=== PATIENT | male | born 1945 | race Caucasian/White ===

== ENCOUNTER 2017-07-06 15:22 | Observation (INO) | payer OTHER ==
--- NOTE | 2017-07-06 15:22 | EDPHY ---
H & P Time Seen by Provider: 07/06/17 15:22 HPI/ROS: CHIEF COMPLAINT: Syncope HISTORY OF PRESENT ILLNESS: Patient was brought in by EMS. He was at home and walking on his way to the bathroom when he felt the hallway"started to enlarge "and fell down having syncope, was out for between 30 sec in a minute per his family. He slid down the wall and scraped his left elbow but did not sustain any other injuries. New medication for dementia 2 days ago. No seizure activity reported. Does not complain of headache or neck pain now. No chest pain or shortness of breath. He did not have a 2nd episode of syncope and does not have lightheadedness or dizziness now. REVIEW OF SYSTEMS: Eye: no change in vision ENT: no sore throat Cardiac: No chest pain Pulmonary: no cough or SOB Abdomen: no vomiting, diarrhea, abdominal pain Musculoskeletal: No neck or back pain, per EMS did have some pain in his left lower ribs but none now. Skin: Left elbow abrasion, tetanus up-to-date Neuro: no headache Constitutional: no fever, feels"shaky"now : no urinary symptoms A comprehensive 10 point review of systems is otherwise negative aside from elements mentioned in the history of present illness. PAST MEDICAL HISTORY: Includes dementia, hip replacement Social history: Daughter and here. Primary care is Dr. Odell at [place], 1 beer a day. General Appearance: Alert and conversant, cooperative. Despite diagnosis of dementia the patient actually does give a pretty good of the events up to his syncopal episode today Eyes: No scleral icterus. Pupils equal and reactive extraocular motion intact. ENT, Mouth: Normal mucous membranes. No tongue laceration or abrasion. Respiratory: Normal respiratory effort, breath sounds equal, lungs are clear to auscultation. Cardiovascular: Regular rate and rhythm. Gastrointestinal: Abdomen is soft and non tender. Does not have tenderness over the spleen. Neurological: Alert, face symmetric, normal motor and sensory in extremities. Left leg is a little bit shaky. Speech is fluent knees able to recall the events as documented in the HPI except for his syncope. Skin: Left elbow abrasion. Musculoskeletal: No extremity or cervical thoracic or lumbar spine tenderness to palpation Psychiatric: Not agitated. Emergency Department course/MDM: Planned EKG, CBC chemistry and troponin. 1636: Discussed with Deana at [facility], requests admission at [facility] not transfer to [facility]. Admission for evaluation of syncope and elderly patient. Constitutional: Initial Vital Signs Temperature (C) 36.4 C 07/06/17 15:37 Heart Rate 78 07/06/17 15:37 Respiratory Rate 16 07/06/17 15:37 Blood Pressure 175/90 H 07/06/17 15:37 O2 Sat (%) 96 07/06/17 15:37 O2 Delivery Mode Room Air Allergies/Adverse Reactions: Penicillins Allergy (Unknown, Verified 07/06/17 17:34) Home Medications: Medication Instructions Recorded Cholecalciferol Vit D3 [Vitamin D3 1,000 units PO DAILY 07/06/17 (*)] Cyanocobalamin [Vitamin B12 (*)] 1,000 mcg PO DAILY 07/06/17 Donepezil HCl [Aricept 5 MG (*)] 10 mg PO DAILY 07/06/17 Memantine HCl [Namenda 5 mg (*)] 5 mg PO DAILY 07/06/17 Medical Decision Making - Diagnostics EKG Interpretation: 12-lead EKG interpreted by me; official reading is in trace master. My interpretation is sinus rhythm rate 73, normal intervals. Imaging Results: Imaging Impressions Chest X-Ray 07/06/17 15:28 Impression: 1. Mild central peribronchial thickening and hyperexpansion which could be related to bronchitis/airways disease. 2. Additional findings, as above. Negative chest x-ray personally interpreted. Differential Diagnosis: Differential diagnosis considered for syncope including but not limited to vasovagal syncope, arrhythmia, dehydration, and blood loss. Consult/Admit Bed Type: [place] [address] - Data Points Laboratory Results: Laboratory Results 07/06/17 15:50 07/06/17 15:50 07/06/17 07/06/17 07/06/17 15:50 15:50 15:50 WBC 6.41 10^3/uL 10^3/uL (3.80-9.50) RBC 4.25 10^6/uL L 10^6/uL (4.40-6.38) Hgb 14.4 g/dL g/dL (13.7-17.5) Hct 41.6 % % (40.0-51.0) MCV 97.9 fL fL (81.5-99.8) MCH 33.9 pg pg (27.9-34.1) MCHC 34.6 g/dL g/dL (32.4-36.7) RDW 11.8 % % (11.5-15.2) Plt Count 165 10^3/uL 10^3/uL (150-400) MPV 9.7 fL fL (8.7-11.7) Neut % (Auto) 74.3 % H % (39.3-74.2) Lymph % (Auto) 15.9 % % (15.0-45.0) [place] % (Auto) 7.0 % % (4.5-13.0) Eos % (Auto) 2.0 % % (0.6-7.6) Baso % (Auto) 0.5 % % (0.3-1.7) Nucleat RBC Rel Count 0.0 % % (0.0-0.2) Absolute Neuts (auto) 4.76 10^3/uL 10^3/uL (1.70-6.50) Absolute Lymphs (auto) 1.02 10^3/uL 10^3/uL (1.00-3.00) Absolute Monos (auto) 0.45 10^3/uL 10^3/uL (0.30-0.80) Absolute Eos (auto) 0.13 10^3/uL 10^3/uL (0.03-0.40) Absolute Basos (auto) 0.03 10^3/uL 10^3/uL (0.02-0.10) Absolute Nucleated RBC 0.00 10^3/uL 10^3/uL (0-0.01) Immature Gran % 0.3 % % (0.0-1.1) Immature Gran # 0.02 10^3/uL 10^3/uL (0.00-0.10) Sodium 146 mEq/L H mEq/L (135-145) Potassium 4.0 mEq/L mEq/L (3.5-5.2) Chloride 108 mEq/L mEq/L (97-110) Carbon Dioxide 25 mEq/l mEq/l (22-31) Anion Gap 13 mEq/L mEq/L (8-16) BUN 15 mg/dL mg/dL (7-23) Creatinine 0.9 mg/dL mg/dL (0.7-1.3) Estimated GFR > 60 Glucose 112 mg/dL H mg/dL (70-100) Calcium 8.9 mg/dL mg/dL (8.5-10.4) Troponin I < 0.012 ng/mL ng/mL (0.000-0.034) TSH 5.350 uIU/mL H uIU/mL (0.465-4.680) Departure - Departure Disposition: [place] Inpatient Acute Clinical Impression: Syncope Qualifiers: Syncope type: unspecified Qualified Code(s): R55 - Syncope and collapse Condition: Good
--- NOTE | 2017-07-06 16:00 | CPEKG ---
Heart Rate: 73 RR Interval: 822 P-R Interval: 160 QRSD Interval: 90 QT Interval: 396 QTC Interval: 437 P [place]: 83 QRS [place]: 83 T Wave [place]: 74 EKG Severity - BORDERLINE ECG - EKG Impression: SINUS RHYTHM EKG Impression: LOW VOLTAGE WITH RIGHT AXIS DEVIATION Electronically Signed By: Damián Posey 06-Jul-2017 16:12:45
[2017-07-06 16:06] LABS: PLATELET COUNT 165 10^3/uL (150-400)
[2017-07-06] MEDS ORDERED: ACETAMINOPHEN 325 MG TAB PO PRN (17:31)
[2017-07-06] MEDS ORDERED: ONDANSETRON DISINTEGRATING 4 MG TAB PO PRN (17:31)
[2017-07-06] MEDS ORDERED: ONDANSETRON 4 MG/2 ML VIAL IVP PRN (17:31)
[2017-07-06] MEDS: D5W 1/2 NS 1,000 ML IV SCH (19:52)
--- NOTE | 2017-07-06 19:52 | PDGENHP ---
History and Physical - Chief Complaint Acute syncope - History of Present Illness Primary care provider: Dr. Rupal Johnson at [facility] Primary neurologist: Dr. Odell at [facility] HPI: 71-year-old male presenting with acute syncope characterized as completely losing consciousness in the setting of ambulating to the bathroom. Patient reports that he had otherwise been having a very normal day and was visiting with his family, and after lunch, the patient had been standing for approximately 30 min and then ambulated to the bathroom. He denies experiencing any significant urinary urgency, but while he was ambulating down the villarreal he began experiencing some sensory perception changes and he felt like he was going to pass out. When the patient got into the bathroom, he slowly lowered himself to the floor and was supported by resting his back against the door. His family responded to the scene, they helped him safely get into the supine position, and they deny any trauma. They report that he was completely unresponsive, initially with eyes closed, then with eyes open, but with no verbal or physical responsiveness. The duration of the symptoms was approximately 1 min, and then they were alleviated without any intervention. The patient did have some associated diaphoresis, and then he awoke, mumbling. The subsequent symptoms completely abated, and the patient was completely in his normal state of health when he arrived in the emergency department. The patient does have underlying dementia and he was initiated on 5 mg daily of Namenda yesterday. He has had no recent medication changes other than this, and the plan was to up titrate this in the outpatient setting every week. The patient has otherwise been eating and drinking normally and although he is not particularly physically active, his has not recently noted any series reduction in his ambulatory abilities or exercise tolerance. History Information - Allergies/Home Medication List Allergies/Adverse Reactions: Penicillins Allergy (Unknown, Verified 07/06/17 17:34) Home Medications: Cholecalciferol Vit D3 [Vitamin D3 (*)] 1,000 units PO DAILY 07/06/17 [Last Taken 07/06/17] Cyanocobalamin [Vitamin B12 (*)] 1,000 mcg PO DAILY 07/06/17 [Last Taken ] Donepezil HCl [Aricept 5 MG (*)] 10 mg PO DAILY 07/06/17 [Last Taken 07/06/17] Memantine HCl [Namenda 5 mg (*)] 5 mg PO DAILY 07/06/17 [Last Taken 07/06/17] I have personally reviewed and updated: family history, medical history, social history, surgical history - Past Medical History Additional medical history: Dementia for approximately 1 year, currently on Aricept 10 mg daily and recently initiated on Namenda 5 mg daily. Elevated blood pressure at [facility] appointment on 06/23/2017, does not currently have a diagnosis of hypertension. 1 syncopal episode approximately 4 years ago while the patient was in the [facility], attributed to dehydration at that time. - Surgical History Additional surgical history: Left hip surgery in [place] - Family History Additional family history: Father with myocardial infarction in his 50s and was a heavy smoker, no family history of venous thromboembolism - Social History Smoking Status: Never smoked Alcohol Use: Other (1 beer nightly) Drug Use: None Additional social history: Patient is mostly sedentary Review of Systems Review of Systems: ROS: 10pt was reviewed & negative except for what was stated in HPI & below Constitutional: Reports: other (Loss of consciousness, diaphoresis) Physical Exam Physical Exam: Temp Pulse Resp BP Pulse Ox 36.9 C 80 14 171/89 H 95 07/06/17 18:49 07/06/17 18:49 07/06/17 18:49 07/06/17 18:49 07/06/17 18:49 Constitutional: no apparent distress, appears nourished, not in pain, other ( Thin appearing man) Eyes: PERRL, anicteric sclera, EOMI Ears, Nose, Mouth, Throat: moist mucous membranes, hearing normal, ears appear normal, no oral mucosal ulcers Cardiovascular: regular rate and rhythym, no murmur, rub, or gallop, No edema Respiratory: no respiratory distress, no rales or rhonchi, clear to auscultation Gastrointestinal: normoactive bowel sounds, soft, non-tender abdomen, no palpable masses Skin: No abrasion, No rash Neurologic: AAOx3, sensation intact bilaterally, CN II-XII Intact, No weakness Psychiatric: not anxious, flat affect, other (Some intermittent confusion and poor short-term memory), No agitated Lab Data & Imaging Review 07/06/17 15:50 07/06/17 15:50 WBC 6.41 10^3/uL (3.80-9.50) 07/06/17 15:50 RBC 4.25 10^6/uL (4.40-6.38) L 07/06/17 15:50 Hgb 14.4 g/dL (13.7-17.5) 07/06/17 15:50 Hct 41.6 % (40.0-51.0) 07/06/17 15:50 MCV 97.9 fL (81.5-99.8) 07/06/17 15:50 MCH 33.9 pg (27.9-34.1) 07/06/17 15:50 MCHC 34.6 g/dL (32.4-36.7) 07/06/17 15:50 RDW 11.8 % (11.5-15.2) 07/06/17 15:50 Plt Count 165 10^3/uL (150-400) 07/06/17 15:50 MPV 9.7 fL (8.7-11.7) 07/06/17 15:50 Neut % (Auto) 74.3 % (39.3-74.2) H 07/06/17 15:50 Lymph % (Auto) 15.9 % (15.0-45.0) 07/06/17 15:50 [place] % (Auto) 7.0 % (4.5-13.0) 07/06/17 15:50 Eos % (Auto) 2.0 % (0.6-7.6) 07/06/17 15:50 Baso % (Auto) 0.5 % (0.3-1.7) 07/06/17 15:50 Nucleat RBC Rel Count 0.0 % (0.0-0.2) 07/06/17 15:50 Absolute Neuts (auto) 4.76 10^3/uL (1.70-6.50) 07/06/17 15:50 Absolute Lymphs (auto) 1.02 10^3/uL (1.00-3.00) 07/06/17 15:50 Absolute Monos (auto) 0.45 10^3/uL (0.30-0.80) 07/06/17 15:50 Absolute Eos (auto) 0.13 10^3/uL (0.03-0.40) 07/06/17 15:50 Absolute Basos (auto) 0.03 10^3/uL (0.02-0.10) 07/06/17 15:50 Absolute Nucleated RBC 0.00 10^3/uL (0-0.01) 07/06/17 15:50 Immature Gran % 0.3 % (0.0-1.1) 07/06/17 15:50 Immature Gran # 0.02 10^3/uL (0.00-0.10) 07/06/17 15:50 Sodium 146 mEq/L (135-145) H 07/06/17 15:50 Potassium 4.0 mEq/L (3.5-5.2) 07/06/17 15:50 Chloride 108 mEq/L (97-110) 07/06/17 15:50 Carbon Dioxide 25 mEq/l (22-31) 07/06/17 15:50 Anion Gap 13 mEq/L (8-16) 07/06/17 15:50 BUN 15 mg/dL (7-23) 07/06/17 15:50 Creatinine 0.9 mg/dL (0.7-1.3) 07/06/17 15:50 Estimated GFR > 60 07/06/17 15:50 Glucose 112 mg/dL (70-100) H 07/06/17 15:50 Calcium 8.9 mg/dL (8.5-10.4) 07/06/17 15:50 Troponin I < 0.012 ng/mL (0.000-0.034) 07/06/17 15:50 TSH 5.350 uIU/mL (0.465-4.680) H 07/06/17 15:50 Visualized and Interpreted Chest x-ray results: Yes Chest X-Ray results: other (Mild peribronchial thickening but no focal airspace disease) Visualized and Interpreted EKG results: Yes EKG Interpretation: Positive for: other (Normal sinus rhythm) Assessment & Plan Assessment: 71-year-old male presenting with acute syncope in the setting of mild dementia Plan: 1. Syncope. Acute, new problem this provider, further workup indicated. Potential etiologies include vasovagal episode post-prandially or pre-micturate verses medication side effect of combining Aricept and Namenda with dizziness as a listed side effect -rule out structural valvular abnormality with echo -rule out anterior posterior circulation defect with carotid ultrasound -D-dimer to rule out venous thromboembolism given his sedentary nature -monitor on telemetry overnight and recommend outpatient 30 day event monitor if unremarkable -will review the above data with the family tomorrow and then discuss continuing the Namenda at the current dosing, avoiding up titration, and recommended close outpatient follow up with his neurologist to ensure that he does not experience any subsequent symptoms 2. Mild dementia. Patient currently well cared for and well compensated, currently on dual medication, as mentioned above, would recommend avoiding up titration the Namenda until he sees his outpatient neurologist in followup 3. Elevated blood pressure. No formal history of hypertension, was recently elevated on outpatient encounter, if continues to be substantially hypertensive , will advise the patient to either initiating medication and then follow up with his primary care provider, or follow up with his primary care provider in the short term for reassessment Diet. Regular Prophylaxis. Moderate risk patient, Lovenox 40 Code. Full, MD BASURTO Disposition. Anticipated discharge is 07/07, pending further workup of conditions outlined above. I have discussed patient's presentation with Dr. Damián Posey in the emergency department, we both agree the patient warrants the aforementioned evaluation in the PCU.
[2017-07-07 04:17] VITALS: O2SAT 92
[2017-07-07] MEDS: D5W 1/2 NS 1,000 ML IV SCH (05:43)
[2017-07-07] MEDS ORDERED: CYANO/VITAMIN B12 1000 MCG TAB PO SCH (09:00)
[2017-07-07] MEDS ORDERED: MEMANTINE HCL 5 MG TAB PO SCH (09:00)
[2017-07-07] MEDS ORDERED: CHOLECALCIFEROL VIT D3 1,000 UNITS TAB PO SCH (09:00)
[2017-07-07] MEDS ORDERED: DONEPEZIL HCL 5 MG TAB PO SCH (09:00)
[2017-07-07] MEDS ORDERED: ENOXAPARIN 40 MG/0.4 ML SYR SC SCH (09:00)
--- NOTE | 2017-07-07 10:10 | ASMTCMCOM ---
CM Note CM Note Notes: 07/07/2017 Case Management Note Met w/pt and Demetrice [phone] (cell) and [phone] (home). ARIAS signed. There are no case management d/c needs identified. Pt is independent in ADL's and ambulates without difficulty. His transports him to the grocery and appointments because pt no longer drives. Pt daughter Ramona lives in [place] and provides support. Case Management d/c poc: home independent with follow up as directed. Case Management available if needs change. Date Signed: 07/07/2017 10:10 AM Electronically Signed By:Erin Lerma RN
[2017-07-07 11:23] VITALS: BP 174/80; PULSE 76; RESP 15; TEMP 98.3
--- NOTE | 2017-07-07 12:47 | ECHO ---
[email or web address] [address] Main: [phone] Fax: Transthoracic Echocardiogram Name: MICHAEL RIOS MR#: [id number] Study Date: 07/07/2017 Study Time: 09:27 AM Date of : 1945 Age: 71 year(s) Height: 182.9 cm (72 in.) Weight: 54.43 kg (120 lb.) BSA: 1.71 m2 Gender: Male Examination: Echo Indication: Cardiac: syncope Image Quality: Technically Difficult Contrast: Requested by: Tyrone Mandujano BP: 155 mmHg/83 mmHg Heart Rate: Rhythm: Normal sinus rhythm Indication: Cardiac: syncope Procedure Staff Technical Designer: Elke Cartwright [facility] Reading Physician: Roberto Walters MD Requesting Provider: Conclusions: Normal size left ventricle. Normal global systolic LV function. EF is 60 %. Grade 1 diastolic dysfunction (abnormal relaxation). Normal RV function. The left atrium is normal in size. The right atrium is normal in size. Right ventricular systolic pressure measures 30mmHg. The IVC is normal sized. No pericardial effusion. Measurements: Chambers Valvular Assessment AV/MV Valvular Assessment TV/PV Normal Normal Normal Name Value Range Name Value Range Name Value Range Ao [place] (MM): 2.7 cm (2.2 cm-3.7 AV Vmax: 1.15 m/s (1 m/s-1.7 TR Vmax: 2.51 mm/s ( - ) cm) m/s) TR PGmax: 25 mmHg ( - ) IVSd (2D): 0.7 cm (0.6 cm-1.1 AV maxP mmHg ( - ) syst. PAP: 30 mmHg ( - ) cm) LVOT Vmax: 0.84 m/s (0.7 m/s-1.1 PV Vmax: 1.15 m/s (0.6 m/s-0.9 LVDd (2D): 4.5 cm (4.2 cm-5.9 m/s) m/s) cm) SNEHAL (Vmax): 2.1 cm2 ( - ) PV PGmax: 5 mmHg ( - ) LVDs (2D): 3.1 cm (2.1 cm-4 MV E Vmax: 0.47 m/s ( - ) cm) MV A Vmax: 0.76 m/s ( - ) LVPWd (2D): 0.9 cm (0.6 cm-1 MV E/A: 0.62 ( - ) cm) LVOTd 1.9 cm 1.9 cm mm LVEF (2D): 60 (>=54 %) Continued Measurements: Chambers Valvular Assessment AV/MV Valvular Assessment TV/PV Patient: MICHAEL RISO Study Date: 07/07/2017 Page 1 of 2 09:27 AM Name Value Name Value Name Value LADs Lon.5 cm MV DecTime: 243 m/s CVP (est.): 5 mmHg LA Area: 10.3 cm2 MV E/E' Septal: 6.20 RA Area: 10.0 cm2 Additional Vessels Name Value Ao Ascendin.6 cm Findings: Left Ventricle: Normal size left ventricle. No LV hypertrophy. Normal global systolic LV function. EF is 60 %. No regional wall motion abnormality. Grade 1 diastolic dysfunction (abnormal relaxation). Right Ventricle: Normal size right ventricle. Normal RV function. Left Atrium: The left atrium is normal in size. Right Atrium: The right atrium is normal in size. Mitral Valve: The mitral valve is normal in appearance and function. Trivial to mild mitral regurgitation. No mitral stenosis is present. Aortic Valve: The aortic valve is normal in appearance and function. Trivial to mild aortic valve regurgitation. No aortic valve stenosis is present. Trivial aortic valve regurgitation. Tricuspid Valve: The tricuspid valve is normal in appearance and function. Mild tricuspid regurgitation is present. The pulmonary artery pressure is normal. Right ventricular systolic pressure measures 30mmHg. Pulmonic Valve: The pulmonic valve is normal in appearance and function. There is no pulmonic regurgitation seen. Aorta: The aorta is normal. Normal size aortic root measuring 2.7 cm. Normal size ascending aorta measuring 2.6 cm. IVC: The IVC is normal sized. There is greater sandra 50% respiratory excursion. Pericardium: No pericardial effusion. (No Signature Object) Patient: MICHAEL RIOS Study Date: 07/07/2017 Page 2 of 2 09:27 AM [id number]
--- NOTE | 2017-07-07 15:31 | ASDISCHSUM ---
Discharge Information Plan Status:Home with No Needs Medically Cleared to Leave: Discharge Date:07/07/2017 02:07 PM CM D/C Disposition:Home, Routine, Self-Care ADT D/C Disposition:Home, Routine, Self-Care Projected Discharge Date:07/07/2017 02:07 PM Transportation at D/C:Family Discharge Delay Reason: Follow-Up Date:07/07/2017 02:07 PM Discharge Slot: Final Diagnosis: Placement Information Patient Contact Information Contact Name:KIRA Relationship: Address:[address] City:[place] Alternate Phone: [facility]/Zip Code:[place] [address] Email: Financial Information Financial Class:Medicare Advantage Plans Primary Plan Desc:[employer] ADVANTAGE OUTPAT Primary Plan Number:[id number] Secondary Plan Desc: Secondary Plan Number: Assessment Information LACE LACE Length of stay for Answers: Less than 1 day current admission Acuity / Level of Answers: Yes Care: Did the patient have an inpatient admission? Comorbidities - select Answers: Dementia all that apply Other Notes: hip replacement, # of Emergency department Answers: 1-2 visits in the last 6 months Score: 8 Date Signed: 07/07/2017 03:29 PM Electronically Signed By:Erin Lerma RN [facility] CM Progress Note CM Note CM Note Notes: 07/07/2017 Case Management Note Met w/pt and Demetrice [phone] (cell) and [phone] (home). JUANA signed. There are no case management d/c needs identified. Pt is independent in ADL's and ambulates without difficulty. His transports him to the grocery and appointments because pt no longer drives. Pt daughter Ramona lives in [place] and provides support. Case Management d/c poc: home independent with follow up as directed. Case Management available if needs change. Date Signed: 07/07/2017 10:10 AM Electronically Signed By:Erin Lerma RN Intervention Information Intervention Type:*ARIAS-Signed Date of Service:07/07/2017 10:07 AM Patient Type:Observation Staff Member:BRITNI Lerma, Erin Hours: Discipline: Severity: Comment:
--- NOTE | 2017-07-07 20:40 | GDS ---
[f rep st] DISCHARGE SUMMARY ALL DIAGNOSES: 1. Syncope. 2. Suspect dehydration. 3. Hypertension. 4. Mild dementia. HOSPITAL COURSE: A 71-year-old man, admitted with syncope. Per history, it sounds mostly like dehyd ration versus vasovagal. He had no arrhythmia seen on telemetry. Cardiac enzymes have been negative . Echocardiogram unremarkable. Carotid Doppler ultrasound negative. He is stable for discharge at this point. He has had some elevated blood pressures. He has no formal diagnosis of hypertension. I suspect sandra t this is more anxiety provoked than true hypertension, though he should follow up with his primary c are physician. FOLLOWUP: 1. Dr. Rupal Johnson for consideration of an outpatient Holter monitor given his syncope. 2. Dr. Rupal Johnson for evaluation of possible essential hypertension. 3. I recommend that he make an appointment in 1-2 weeks. Copy requested to: Rupal Johnson MD [place] /[id number]/MODL
== END 2017-07-07 14:07 | disposition home or self-care (01) ==
LOC: EDUNIT# → F2W 18:40
PROVIDERS: ADMIT Internal Medicine; ATTEND Internal Medicine
DX: R55 Syncope and collapse (principal); I10 Essential (primary) hypertension; F03.90 Unspecified dementia, unspecified severity, without behavioral disturbance, psychotic disturbance, mood disturbance, and anxiety
CPT/HCPCS: 71046; 93005; 93306; 93880; G0378